=== PATIENT | female | born 1935 | race Caucasian/White ===

== ENCOUNTER 2017-07-22 14:00 | Observation (INO) | payer MEDICARE ==
[2017-07-22] MEDS ORDERED: NS 0.9% 1000 ML* 1,000 ML IV SCH (14:45)
[2017-07-22] MEDS ORDERED: Meclizine TAB* 12.5 MG PO ONE (14:57)
[2017-07-22] MEDS ORDERED: Ondansetron INJ* 2 MG/ML VIAL IV ONE (14:57)
[2017-07-22 15:11] LABS: ABS Basophils 0.1 10^3/ul (0-0.2); ABS Eosinophils 0.1 10^3/ul (0-0.6); ABS Lymphocytes 1.2 10^3/ul (1.0-4.8); ABS Neutrophils 14.4 10^3/ul (1.5-7.7); ABS Nucleated RBC 0 10^3/ul; Eosinophil % 0.6 % (0-6); Hematocrit 41 % (35-47); Hemoglobin 13.8 g/dl (12.0-16.0); Mean Corpuscular HGB Conc 33 g/dl (31-36); Mean Corpuscular Hemoglobin 30 pg (27-31); Mean Corpuscular Volume 91 fL (80-97); Mean Platelet Volume 7 um3 (7.4-10.4); Nucleated Red Blood Cells % 0.1; Platelet Count 276 10^3/ul (150-450); Red Blood Count 4.57 10^6/ul (4.0-5.4); Red Cell Distribution Width 15 % (10.5-15); White Blood Count 16.8 10^3/ul (3.5-10.8)
--- NOTE | 2017-07-22 15:24 | RAD ---
Indication: Dizziness. CT of the brain was performed without IV contrast. No prior study is available for comparison. Ventricular structures are midline. No midline shift is noted. Central and cortical atrophy is noted. Periventricular lucency consistent with chronic ischemic White matter change is noted. There is no evidence of intracranial mass or hemorrhage. Calcification is noted along the left temporal bone in the scalp. This may be sequela from prior hematoma. Mastoid air cells and paranasal sinuses are otherwise unremarkable. IMPRESSION: Chronic ischemic White matter change with central and cortical atrophy. No hemorrhage is noted.
[2017-07-22 15:27] LABS: INR 0.88 (0.77-1.02)
[2017-07-22 15:30] LABS: EGFR Non-African American 95.9 (>60)
[2017-07-22 15:46] LABS: Urine Appearance Clear; Urine Blood Negative (Negative); Urine Color Straw; Urine Ketones Negative (Negative); Urine Protein Negative (Negative); Urine Specific Gravity 1.006 (1.010-1.030); Urine Urobilinogen Negative (Negative)
--- NOTE | 2017-07-22 16:03 | RAD ---
Indication: Dizziness, elevated white blood cell count. Single frontal view of the chest performed at 1545 hours was reviewed. Comparison is made with previous exam dated May 09, 2011. No mediastinal shift is noted. Heart is at the upper limits of normal size. Guillen are clear. IMPRESSION: NO ACTIVE CARDIOPULMONARY DISEASE IS NOTED.
--- NOTE | 2017-07-22 16:38 | ED ---
Tracy Colon Thomas, scribed for Edilson English MD on 07/22/17 at 1508 . Dizziness - HPI Summary HPI Summary: The patient is an 81 year old female with a history of dementia brought in by ambulance with complaints of dizziness that began earlier today. Prior to arrival she was vomiting. She additionally complains of nausea and described her stomach as feeling off. The dizziness is aggravated by movement. The patient denies headache and chest pain. She is accompanied by three family members. - History Of Current Complaint Chief Complaint: EDDizziness Stated Complaint: DIZINESS/VOMITING Time Seen by Provider: 07/22/17 14:41 Hx Obtained From: Patient, Family/Shop Firer/Fireman Onset/Duration: Still Present Timing: Constant Severity Initially: Mild Severity Currently: Mild Character: Room Spinning, Dizzy Aggravating Factor(s): Position Change Alleviating Factor(s): Nothing Associated Signs And Symptoms: Positive: Nausea, Vomiting, Other: - Stomach "feels off" - Allergies/Home Medications Allergies/Adverse Reactions: Allergies Allergy/AdvReac Type Severity Reaction Status Date / Time No Known Allergies Allergy Verified 07/22/17 14:33 Home Medications: Home Medications Cyanocobalamin TAB* [Vitamin B12 TAB*] 500 mcg PO DAILY 07/22/17 [History Confirmed 07/22/17] PMH/Surg Hx/FS Hx/Imm Hx Endocrine/Hematology History: Denies: Hx Diabetes Cardiovascular History: Denies: Hx Hypertension Infectious Disease History: No Infectious Disease History: Denies: Traveled Outside the [place] in Last 30 Days - Family History Known Family History: Negative: Diabetes - Social History Alcohol Use: None Substance Use Type: Reports: None Smoking Status (MU): Unknown if Ever Smoked Review of Systems Negative: Chest Pain Positive: Vomiting, Nausea, Other - Stomach "feels off" Neurological: Other - Dizziness Negative: Headache All Other Systems Reviewed And Are Negative: Yes Physical Exam - Summary Physical Exam Summary: General: well-appearing, no pain distress Skin: warm, color reflects adequate perfusion, dry Head: normal Eyes: EOMI, ARTIE. There is no nystagmus. ENT: normal Neck: supple, nontender Respiratory: CTA, breath sounds present Cardiovascular: RRR Abdomen: soft, nontender Bowel: present Musculoskeletal: normal, strength/ROM intact Neurological: sensory/motor intact. She has dementia. She is dizzy and moves her head and eyes, but there is no nystagmus. No focal neurological deficit. Psychological: The patient has dementia. Triage Information Reviewed: Yes Vital Signs On Initial Exam: Initial Vitals Temp Pulse Resp BP Pulse Ox 97.9 F 65 69 172/77 97 07/22/17 14:15 07/22/17 14:15 07/22/17 14:15 07/22/17 14:15 07/22/17 14:15 Vital Signs Reviewed: Yes - Richard Coma Scale Coma Scale Total: 15 Diagnostics - Vital Signs Vital Signs Temp Pulse Resp BP Pulse Ox 07/22/17 14:17 65 16 97 07/22/17 14:16 172/77 07/22/17 14:15 97.9 F 65 69 172/77 97 - Laboratory Lab Results: Lab Results 07/22/17 07/22/17 07/22/17 Range/Units 14:55 14:55 14:55 WBC (3.5-10.8) 10^3/ul RBC (4.0-5.4) 10^6/ul Hgb (12.0-16.0) g/dl Hct (35-47) % MCV (80-97) fL MCH (27-31) pg MCHC (31-36) g/dl RDW (10.5-15) % Plt Count (150-450) 10^3/ul MPV (7.4-10.4) um3 Neut % (Auto) (38-83) % Lymph % (Auto) (25-47) % Ward % (Auto) (1-9) % Eos % (Auto) (0-6) % Baso % (Auto) (0-2) % Absolute Neuts (auto) (1.5-7.7) 10^3/ul Absolute Lymphs (auto) (1.0-4.8) 10^3/ul Absolute Monos (auto) (0-0.8) 10^3/ul Absolute Eos (auto) (0-0.6) 10^3/ul Absolute Basos (auto) (0-0.2) 10^3/ul Absolute Nucleated RBC 10^3/ul Nucleated RBC % INR (Anticoag Therapy) 0.88 (0.77-1.02) APTT 24.9 L (26.0-36.3) seconds Sodium 135 (133-145) mmol/L Potassium 3.8 (3.5-5.0) mmol/L Chloride 103 (101-111) mmol/L Carbon Dioxide 27 (22-32) mmol/L Anion Gap 5 (2-11) mmol/L BUN 9 (6-24) mg/dL Creatinine 0.60 (0.51-0.95) mg/dL Est GFR ( Amer) 123.4 (>60) Est GFR (Non-Af Amer) 95.9 (>60) BUN/Creatinine Ratio 15.0 (8-20) Glucose 107 H (70-100) mg/dL Lactic Acid (0.5-2.0) mmol/L Calcium 8.5 L (8.6-10.3) mg/dL Magnesium 1.9 (1.9-2.7) mg/dL Total Bilirubin 0.40 (0.2-1.0) mg/dL AST 15 (13-39) U/L ALT 8 (7-52) U/L Alkaline Phosphatase 86 (34-104) U/L Troponin I 0.01 (<0.04) ng/mL C-Reactive Protein 3.66 (< 5.00) mg/L B-Natriuretic Peptide 29 ( - 100) pg/mL Total Protein 6.7 (6.4-8.9) g/dL Albumin 3.6 (3.2-5.2) g/dL Globulin 3.1 (2-4) g/dL Albumin/Globulin Ratio 1.2 (1-3) TSH 5.83 H (0.34-5.60) mcIU/mL Urine Color Urine Appearance Urine pH (5-9) Ur Specific [place] (1.010-1.030) Urine Protein (Negative) Urine Ketones (Negative) Urine Blood (Negative) Urine Nitrate (Negative) Urine Bilirubin (Negative) Urine Urobilinogen (Negative) Ur Leukocyte Esterase (Negative) Urine WBC (Auto) (Absent) Urine RBC (Auto) (Absent) Ur Squamous Epith Cells (Absent) Urine Bacteria (Absent) Urine Glucose (Negative) 07/22/17 07/22/17 07/22/17 Range/Units 14:55 14:55 15:35 WBC 16.8 H (3.5-10.8) 10^3/ul RBC 4.57 (4.0-5.4) 10^6/ul Hgb 13.8 (12.0-16.0) g/dl Hct 41 (35-47) % MCV 91 (80-97) fL MCH 30 (27-31) pg MCHC 33 (31-36) g/dl RDW 15 (10.5-15) % Plt Count 276 (150-450) 10^3/ul MPV 7 L (7.4-10.4) um3 Neut % (Auto) 85.8 H (38-83) % Lymph % (Auto) 7.0 L (25-47) % Ward % (Auto) 6.1 (1-9) % Eos % (Auto) 0.6 (0-6) % Baso % (Auto) 0.5 (0-2) % Absolute Neuts (auto) 14.4 H (1.5-7.7) 10^3/ul Absolute Lymphs (auto) 1.2 (1.0-4.8) 10^3/ul Absolute Monos (auto) 1.0 H (0-0.8) 10^3/ul Absolute Eos (auto) 0.1 (0-0.6) 10^3/ul Absolute Basos (auto) 0.1 (0-0.2) 10^3/ul Absolute Nucleated RBC 0 10^3/ul Nucleated RBC % 0.1 INR (Anticoag Therapy) (0.77-1.02) APTT (26.0-36.3) seconds Sodium (133-145) mmol/L Potassium (3.5-5.0) mmol/L Chloride (101-111) mmol/L Carbon Dioxide (22-32) mmol/L Anion Gap (2-11) mmol/L BUN (6-24) mg/dL Creatinine (0.51-0.95) mg/dL Est GFR ( Amer) (>60) Est GFR (Non-Af Amer) (>60) BUN/Creatinine Ratio (8-20) Glucose (70-100) mg/dL Lactic Acid 1.3 (0.5-2.0) mmol/L Calcium (8.6-10.3) mg/dL Magnesium (1.9-2.7) mg/dL Total Bilirubin (0.2-1.0) mg/dL AST (13-39) U/L ALT (7-52) U/L Alkaline Phosphatase (34-104) U/L Troponin I (<0.04) ng/mL C-Reactive Protein (< 5.00) mg/L B-Natriuretic Peptide ( - 100) pg/mL Total Protein (6.4-8.9) g/dL Albumin (3.2-5.2) g/dL Globulin (2-4) g/dL Albumin/Globulin Ratio (1-3) TSH (0.34-5.60) mcIU/mL Urine Color Straw Urine Appearance Clear Urine pH 8.0 (5-9) Ur Specific [place] 1.006 L (1.010-1.030) Urine Protein Negative (Negative) Urine Ketones Negative (Negative) Urine Blood Negative (Negative) Urine Nitrate Negative (Negative) Urine Bilirubin Negative (Negative) Urine Urobilinogen Negative (Negative) Ur Leukocyte Esterase 2+ H (Negative) Urine WBC (Auto) 1+(6-10/hpf) H (Absent) Urine RBC (Auto) Trace(0-2/hpf) (Absent) Ur Squamous Epith Cells Present H (Absent) Urine Bacteria Absent (Absent) Urine Glucose Negative (Negative) Result Diagrams: 07/22/17 14:55 07/22/17 14:55 Lab Statement: Any lab studies that have been ordered have been reviewed, and results considered in the medical decision making process. - CT CT Brain CT Interpretation: No Acute Changes - Chronic ischemic White matter change with central and cortical atrophy. No hemorrhage is noted. Dr. English has reviewed this report. CT Interpretation Completed By: Radiologist Dizzy Course/Dx - Course Course Of Treatment: Medications reviewed. BP noted and advised follow up with PMD. PATIENT UNABLE TO AMBULATE SAFELY. ADMIT HOSPITALIST - Diagnoses Provider Diagnoses: Blood pressure elevated without history of HTN, Dizziness Discharge - Discharge Plan Condition: Stable Disposition: ADMITTED TO [facility] Referrals: Haroon DEE,Geovanna Madsen [Primary Care Provider] - The documentation as recorded by the Tracy demarco Thomas accurately reflects the service I personally performed and the decisions made by , Edilson English MD.
[2017-07-22] MEDS ORDERED: cefTRIAXone(*) 1 GM in NS 0.9% 50 ML* 50 ML IVPB SCH (17:00)
[2017-07-22] MEDS ORDERED: Calcium Carbonate CHEW TAB* 500 MG (TUMS) PO ONE (17:29)
[2017-07-22] MEDS ORDERED: NS 0.9% 50 ML* 50 ML ONE (18:30)
[2017-07-22] MEDS: Omeprazole CAP* 20 MG PO SCH (20:04)
[2017-07-22] MEDS: Calcium Carbonate CHEW TAB* 500 MG (TUMS) PO SCH (20:04)
--- NOTE | 2017-07-22 20:50 | HP ---
HISTORY AND PHYSICAL: DATE OF ADMISSION: 07/22/17. ADMITTING PROVIDER: Josiah Sanches MD. PRIMARY CARE DOCTOR: Geovanna Patiño MD ([place]). CHIEF COMPLAINT: Nausea, vomiting, vertigo, inability to ambulate. HISTORY OF PRESENT ILLNESS: Taylor Ragsdale is an 81-year-old female with a past medical history of dementia, presenting with one day of nausea, vomiting, followed by dizziness. The patient vomited twice at home then once in the emergency room, brown bilious, no reported coffee-ground emesis or blood. The patient's main complaint now is dizziness especially with head movements and lying down flat. She has not had these sensations before. Daughter had noticed that her eyes were jittery during these episodes. The patient specifically denied any dysuria, chest pain, chest tightness, diarrhea, constipation, abdominal pain. No slurred speech or focal weakness. There is element of heartburn, which she does get chronically and takes Tums for it p.r.n. The patient in the emergency room of [facility] [place] had a CT of the head, which showed some chronic ischemic white matter changes, a chest chest x- ray which showed no acute process, EKG, which showed normal sinus rhythm with a premature atrial contraction. She is being admitted given inability to ambulate in the setting of acute onset of nausea, vomiting, vertigo and a UA that may be consistent with urinary tract infection with 2+ leukocyte esterase and 1+ white count. She does have a leukocytosis of 16.8. She is being admitted to observation status. PAST MEDICAL HISTORY: 1. Dementia. 2. Episode of pneumonia in 2010. PAST SURGICAL HISTORY: Denies any. MEDICATIONS: Include, B12 500 mcg p.o. daily. ALLERGIES: No known drug allergies. FAMILY HISTORY: Mother of COPD. Father of myocardial infarction. SOCIAL HISTORY: The patient is a former smoker, quit around age 45. She smoked for approximately 30 years, approximately 1 pack per day. Never a drinker. No other drug use. She was a housewife. Her medical surrogate is her daughter, Haroon Ragsdale. She lives in [facility]. Her is currently at [facility]. REVIEW OF SYSTEMS: Complete 14-point review of systems is negative except as per HPI. PHYSICAL EXAMINATION GENERAL APPEARANCE: No acute distress, sitting in bed, somewhat anxious appearing with movements. VITAL SIGNS: Temperature 97.9, heart rate 68, respiratory rate 16, sating 97% on room air, blood pressure 172/77. HEENT: Normocephalic, atraumatic. Pupils are equally round and reactive to light. Extraocular motions are intact. No scleral icterus. NECK: Supple. No cervical lymphadenopathy. PULMONARY: Coarse rales at bilateral bases. No wheezing or rhonchi. CARDIOVASCULAR: Regular rate and rhythm. No murmurs, rubs, or gallops. ABDOMEN: Soft, nontender, and nondistended. No peritoneal signs. No guarding. No rebound. No Day's sign. EXTREMITIES: Warm and well perfused. No peripheral edema. NEUROLOGIC EXAM: Cranial nerves II through XII intact. Strength 5/5 in upper and lower extremities, though somewhat pain limited in her left thigh with hip flexion. The patient does have some horizontal nystagmus on occasion with changes to head movement, though is not tolerant of full Jocelyn-Hallpike testing given acute vertiginous sensations. Btzufe-ov-neqt intact. Rapid hand motions intact. Heel- to-simms slow, but intact. SKIN: No lesions, no rashes. DIAGNOSTIC STUDIES/LAB DATA: Laboratory evaluation, white count 16.8, hemoglobin 13.8, hematocrit 41, platelets 276, INR 0.88. Sodium 135, potassium 3.8, chloride 103, carbon dioxide 27, BUN 9, creatinine 0.60, glucose 107, lactic acid 1.3, magnesium 1.9. AST 15, ALT 8. Troponin 0.01. CRP 3.66. BNP 29. TSH 5.83. Urinalysis 2+ leukocyte esterase, 1+ white count, no nitrites, absent bacteria. Imaging, CT of the head, noncontrast demonstrated chronic ischemic white matter changes with central cortical atrophy. No hemorrhages noted. Some calcifications noted along the left temporal bone in the scalp, which may be the sequela of prior hematoma. Chest x-ray demonstrated no active cardiopulmonary disease. EKG demonstrated normal sinus rhythm with premature atrial contraction, normal axis, normal interval, QTC 482. No ST changes or no T-wave inversions. ASSESSMENT AND PLAN: 1. The patient is an 81-year-old female, relatively healthy with some moderate dementia presenting with acute onset of nausea, vomiting, vertigo and inability to safely ambulate. She is being admitted to observation status. She does have equivical evidence of horizontal nystagmus with some head motions. We will get physical therapy to see her in the morning, may benefit from Geneva maneuver and we will try to repeat [place]-Hallpike testing in the morning. We will continue IV fluids given her nausea, vomiting. She has a intermediately positive urinalysis. We will follow up the urine culture and start empiric ceftriaxone for a potential urinary tract infection until urine culture results especially given her leukocytosis and nausea, vomiting and vertigo. We will continue the meclizine for now 12.5 mg q.8 hours p.r.n. She does not have any other focal neurological deficits. We will defer getting an MRI now. No evidence of transient ischemic attack or previous stroke or history of atrial fibrillation. 2. Blood pressure is relatively elevated in the setting of nausea and vomiting. We will give hydralazine p.r.n. for her blood pressure greater than 180 and monitor to see if she needs to be started on a new antihypertensive. 3. For her history of gastroesophageal reflux disease. We will continue Tums and also start Protonix daily. We will continue Zofran for antinausea therapy. 4. She is a full code, medical surrogate is Haroonkim Ragsdale. [id number]/CPS #: [id number] [facility] HEALTH SYSTEMJosiah
[2017-07-22] MEDS: Meclizine TAB* 12.5 MG PO SCH (21:48)
[2017-07-22] MEDS ORDERED: Ondansetron INJ* 2 MG/ML VIAL IV PRN (22:00)
[2017-07-23] MEDS: Meclizine TAB* 12.5 MG PO SCH ×2 (05:44→13:59)
[2017-07-23 07:08] LABS: ABS Basophils 0.1 10^3/ul (0-0.2); ABS Eosinophils 0.1 10^3/ul (0-0.6); ABS Lymphocytes 1.7 10^3/ul (1.0-4.8); ABS Monocytes 0.8 10^3/ul (0-0.8); ABS Neutrophils 6.5 10^3/ul (1.5-7.7); ABS Nucleated RBC 0 10^3/ul; Eosinophil % 1.4 % (0-6); Hematocrit 42 % (35-47); Hemoglobin 14.2 g/dl (12.0-16.0); Lymphocyte % 18.1 % (25-47); Mean Corpuscular HGB Conc 34 g/dl (31-36); Mean Corpuscular Hemoglobin 31 pg (27-31); Mean Corpuscular Volume 90 fL (80-97); Mean Platelet Volume 7 um3 (7.4-10.4); Nucleated Red Blood Cells % 0; Platelet Count 298 10^3/ul (150-450); Red Blood Count 4.61 10^6/ul (4.0-5.4); Red Cell Distribution Width 15 % (10.5-15); White Blood Count 9.2 10^3/ul (3.5-10.8)
[2017-07-23 07:23] LABS: EGFR Non-African American 69.8 (>60)
[2017-07-23] MEDS ORDERED: Cyanocobalamin TAB* 500 MCG PO SCH (09:00)
[2017-07-23] MEDS: Calcium Carbonate CHEW TAB* 500 MG (TUMS) PO SCH (09:53)
[2017-07-23] MEDS: Omeprazole CAP* 20 MG PO SCH (09:53)
[2017-07-23 11:19] VITALS: BP 149/61
[2017-07-23] MEDS ORDERED: Acetaminophen TAB* 325 MG PO PRN (11:21)
--- NOTE | 2017-07-24 02:03 | DS ---
DISCHARGE SUMMARY: DATE OF ADMISSION: 07/22/17 DATE OF DISCHARGE: 07/23/17 ADMITTING PROVIDER: Josiah Sanches MD ATTENDING PHYSICIAN: Josiah Sanches MD PRIMARY CARE DOCTOR: Geovanna Patiño MD ([place], [place]). CHIEF COMPLAINT: Nausea, vomiting, vertigo, inability to ambulate. PRINCIPAL DIAGNOSES: Escherichia coli urinary tract infection; possible gastroenteritis. HISTORY OF PRESENT ILLNESS AND HOSPITAL COURSE: Taylor Ragsdale is an 81-year- old female with PMH of dementia, presented with 1 day of nausea, vomiting followed by dizziness. The patient had bilious vomit x2 at home and then again in the emergency room was treated with Zofran and had relief of nausea throughout the rest of the admission. She had a UA that was concerning for potential urinary tract infection with 2+ leukocyte esterase, 1+ white blood cell count, and the urine culture ultimately revealed 75,000 to 100,000 E. coli. She had been empirically started on ceftriaxone upon admission. She worked with physical therapy, was able to ambulate with some contact guard assistance. She had a CT head, which did not demonstrate any signs of acute stroke and no other cerebellar signs or focal neurological deficits were discovered on serial neurologic exams. She was not orthostatic. She had some reported jittery eye movements prior to admission, but was not observed on repeat Jocelyn-Hallpike testing, though somewhat limited given the patient's anxiety and dizziness during the testing. Head thrust test was negative. The patient will be discharged with close followup to primary care physician, Dr. Geovanna Patiño, within 3 to 5 days after discharge and oral course of cefdinir 300 mg p.o. b.i.d. for an additional 6 days. DISCHARGE MEDICATIONS: Include: 1. Cefdinir 300 mg p.o. b.i.d. for 12 tabs. 2. Tylenol p.r.n. for pain or headache. 3. Calcium carbonate 500 mg b.i.d. p.r.n. for GERD. DISCHARGE DIET: No restrictions. RESTRICTIONS: None. FOLLOWUP: Please follow up with Dr. Geovanna Patiño within 3 to 5 days. Please follow up on urine culture and sensitivity testing to make sure sensitive to cephalosporins. The patient also was initially hypertensive on admission in the 170s/70s, but that improved to between 130s to mid 140s and blood pressure should be checked as an outpatient. TIME SPENT: Time spent on discharge was 35 minutes. [id number]/CPS #: [id number] [facility]
== END 2017-07-23 15:00 | disposition home or self-care (01) ==
LOC: ED 14:00 → MED 17:05
PROVIDERS: ADMIT Internal Medicine; ATTEND Internal Medicine
DX: R11.2 Nausea with vomiting, unspecified (principal); R42 Dizziness and giddiness; R26.2 Difficulty in walking, not elsewhere classified; N39.0 Urinary tract infection, site not specified; B96.20 Unspecified Escherichia coli [E. coli] as the cause of diseases classified elsewhere; K21.9 Gastro-esophageal reflux disease without esophagitis; I49.1 Atrial premature depolarization; R07.9 Chest pain, unspecified; Z87.891 Personal history of nicotine dependence; F03.90 Unspecified dementia, unspecified severity, without behavioral disturbance, psychotic disturbance, mood disturbance, and anxiety
CPT/HCPCS: 36415; 70450; 71045; 80048; 80053; 81003; 81015; 82375; 82803; 83605; 83735; 83880; 84443; 84484; 85025; 85610; 85730; 86140; 87077; 87086; 87186; 87502; 93005; 96365; 96375; 99284; A9270-GY; G0378; G8978-GP-CI; G8979-GP-CH; J0696; J2405

== ENCOUNTER 2019-04-09 11:08 | Emergency (ER) | payer MEDICARE ==
[2019-04-09 12:54] LABS: ABS Basophils 0.1 10^3/ul (0-0.2); ABS Eosinophils 0.1 10^3/ul (0-0.6); ABS Lymphocytes 0.7 10^3/ul (1.0-4.8); ABS Monocytes 0.9 10^3/ul (0-0.8); ABS Neutrophils 6.8 10^3/ul (1.5-7.7); Eosinophil % 1.1 %; Hematocrit 46 % (35-47); Hemoglobin 15.8 g/dL (12.0-16.0); Lymphocyte % 8.2 %; Mean Corpuscular HGB Conc 34 g/dL (31-36); Mean Corpuscular Hemoglobin 33 pg (27-31); Mean Corpuscular Volume 95 fL (80-97); Mean Platelet Volume 7.7 fL (7.4-10.4); Platelet Count 259 10^3/uL (150-450); Red Blood Count 4.84 10^6 /uL (3.70-4.87); Red Cell Distribution Width 14 % (10-15); White Blood Count 8.5 10^3/uL (3.5-10.8)
[2019-04-09 13:13] LABS: Albumin 4.3 g/dL (3.2-5.2); Albumin/Globulin Ratio 1.1 (1-3); Calcium 9.7 mg/dL (8.6-10.3); EGFR African American 82.9 (>60); EGFR Non-African American 68.5 (>60); Globulin 3.9 g/dL (2-4); Magnesium 2.3 mg/dL (1.9-2.7); Total Bilirubin 0.5 mg/dL (0.2-1.0); Total Protein 8.2 g/dL (6.4-8.9)
[2019-04-09 13:15] LABS: Troponin I 0.01 ng/mL (<0.04)
[2019-04-09 13:37] LABS: TSH (Thyroid Stimulating Horm) 2.99 mcIU/mL (0.34-5.60)
[2019-04-09 14:16] LABS: Urine Appearance Cloudy; Urine Bacteria Absent (Absent); Urine Bilirubin Negative (Negative); Urine Blood 1+ (Negative); Urine Color Yellow; Urine Glucose Negative (Negative); Urine Ketones Negative (Negative); Urine Nitrite Negative (Negative); Urine Protein Negative (Negative); Urine Red Blood Cell Trace(0-2/hpf) (Absent); Urine Specific Gravity 1.005 (1.010-1.030); Urine Squamous Epithelial Cell Present (Absent); Urine Urobilinogen Negative (Negative); Urine White Blood Cell 2+(11-20/hpf) (Absent)
[2019-04-09 15:33] VITALS: BP 189/78
--- NOTE | 2019-04-09 15:48 | ED ---
Dizziness - HPI Summary HPI Summary: This patient is an 83-year-old female with a history of dementia and vertigo presenting to the ED with family. Patient had one episode of dizziness this morning with ringing in the ears. Symptoms resolved approximately 10 minutes later. She denies any CP or SOB. She denies any abdominal pain, nausea, vomiting, diarrhea, constipation. Patient takes no medications and denies history of any health problems. Family at bedside state patient unwilling to see physicians and has dementia so typically does not see physicians. Last check up over 1 year ago. - History Of Current Complaint Chief Complaint: EDDizziness Stated Complaint: DIZZY, WEEK Time Seen by Provider: 04/09/19 13:51 Hx Obtained From: Patient Timing: Constant Severity Initially: Moderate Severity Currently: None Character: Dizzy Aggravating Factor(s): Nothing Alleviating Factor(s): Nothing Associated Signs And Symptoms: Positive: Nausea - Risk Factors Cardiac Risk Factors: Negative CVA Risk Factor: Negative - Allergies/Home Medications Allergies/Adverse Reactions: Allergies Allergy/AdvReac Type Severity Reaction Status Date / Time No Known Allergies Allergy Verified 04/09/19 11:23 PMH/Surg Hx/FS Hx/Imm Hx Previously Healthy: Yes Endocrine/Hematology History: Denies: Hx Diabetes Cardiovascular History: Denies: Hx Hypertension GI History: Reports: Other GI Disorders - Chronic Heartburn takes TUMS every day Sensory History: Denies: Hx Contacts or Glasses, Hx Hearing Aid Opthamlomology History: Denies: Hx Contacts or Glasses Neurological History: Reports: Hx Dementia - Immunization History Hx Pertussis Vaccination: No Immunizations Up to Date: Yes Infectious Disease History: No Infectious Disease History: Denies: Traveled Outside the [place] in Last 30 Days - Family History Known Family History: Negative: Diabetes - Social History Occupation: Unemployed Lives: With Family Alcohol Use: None Hx Substance Use: No Substance Use Type: Reports: None Hx Tobacco Use: No Smoking Status (MU): Former Smoker Review of Systems Negative: Fever, Chills, Fatigue, Skin Diaphoresis Negative: Dental Pain Negative: Palpitations, Chest Pain Negative: Shortness Of Breath, Cough Positive: Nausea Genitourinary: Negative Positive: no symptoms reported, see HPI Negative: Arthralgia, Myalgia Neurological: Other - dizziness - since resolved All Other Systems Reviewed And Are Negative: Yes Physical Exam Triage Information Reviewed: Yes Vital Signs On Initial Exam: Initial Vitals Temp Pulse Resp BP Pulse Ox 98.3 F 66 16 204/88 98 04/09/19 11:19 04/09/19 11:19 04/09/19 11:19 04/09/19 11:19 04/09/19 11:19 Vital Signs Reviewed: Yes Appearance: Positive: Well-Appearing, Well-Nourished Skin: Positive: Warm, Skin Color Reflects Adequate Perfusion Head/Face: Positive: Normal Head/Face Inspection Eyes: Positive: Conjunctiva Clear Neck: Positive: Supple, Nontender, No Lymphadenopathy Respiratory/Lung Sounds: Positive: Clear to Auscultation, Breath Sounds Present Cardiovascular: Positive: RRR, Pulses are Symmetrical in both Upper and Lower Extremities Musculoskeletal: Positive: Strength/ROM Intact Neurological: Positive: Other - pt confused - baseline AVPU Assessment: Alert Procedures - Sedation Patient Received Moderate/Deep Sedation with Procedure: No Diagnostics - Vital Signs Vital Signs Temp Pulse Resp BP Pulse Ox 04/09/19 15:02 67 22 189/78 97 04/09/19 15:00 76 26 94 04/09/19 14:05 21 04/09/19 14:04 196/126 04/09/19 11:19 98.3 F 66 16 204/88 98 - Laboratory Lab Results: Lab Results 04/09/19 04/09/19 04/09/19 Range/Units 12:47 12:47 12:47 WBC 8.5 (3.5-10.8) 10^3/uL RBC 4.84 (3.70-4.87) 10^6 /uL Hgb 15.8 (12.0-16.0) g/dL Hct 46 (35-47) % MCV 95 (80-97) fL MCH 33 H (27-31) pg MCHC 34 (31-36) g/dL RDW 14 (10-15) % Plt Count 259 (150-450) 10^3/uL MPV 7.7 (7.4-10.4) fL Neut % (Auto) 80.1 % Lymph % (Auto) 8.2 % Catron % (Auto) 10.0 % Eos % (Auto) 1.1 % Baso % (Auto) 0.6 % Absolute Neuts (auto) 6.8 (1.5-7.7) 10^3/ul Absolute Lymphs (auto) 0.7 L (1.0-4.8) 10^3/ul Absolute Monos (auto) 0.9 H (0-0.8) 10^3/ul Absolute Eos (auto) 0.1 (0-0.6) 10^3/ul Absolute Basos (auto) 0.1 (0-0.2) 10^3/ul Absolute Nucleated RBC 0.0 10^3/ul Nucleated RBC % 0.0 Sodium 136 (135-145) mmol/L Potassium 4.0 (3.5-5.0) mmol/L Chloride 100 L (101-111) mmol/L Carbon Dioxide 29 (22-32) mmol/L Anion Gap 7 (2-11) mmol/L BUN 8 (6-24) mg/dL Creatinine 0.80 (0.51-0.95) mg/dL Est GFR ( Amer) 82.9 (>60) Est GFR (Non-Af Amer) 68.5 (>60) BUN/Creatinine Ratio 10.0 (8-20) Glucose 106 H (70-100) mg/dL Lactic Acid 1.2 (0.5-2.0) mmol/L Calcium 9.7 (8.6-10.3) mg/dL Magnesium 2.3 (1.9-2.7) mg/dL Total Bilirubin 0.50 (0.2-1.0) mg/dL AST 20 (13-39) U/L ALT 15 (7-52) U/L Alkaline Phosphatase 94 (34-104) U/L Troponin I 0.01 (<0.04) ng/mL Total Protein 8.2 (6.4-8.9) g/dL Albumin 4.3 (3.2-5.2) g/dL Globulin 3.9 (2-4) g/dL Albumin/Globulin Ratio 1.1 (1-3) TSH 2.99 (0.34-5.60) mcIU/mL Urine Color Urine Appearance Urine pH (5-9) Ur Specific Tippo (1.010-1.030) Urine Protein (Negative) Urine Ketones (Negative) Urine Blood (Negative) Urine Nitrate (Negative) Urine Bilirubin (Negative) Urine Urobilinogen (Negative) Ur Leukocyte Esterase (Negative) Urine WBC (Auto) (Absent) Urine RBC (Auto) (Absent) Ur Squamous Epith Cells (Absent) Amorphous Crystals (Absent) Urine Bacteria (Absent) Urine Glucose (Negative) 04/09/19 Range/Units 14:00 WBC (3.5-10.8) 10^3/uL RBC (3.70-4.87) 10^6 /uL Hgb (12.0-16.0) g/dL Hct (35-47) % MCV (80-97) fL MCH (27-31) pg MCHC (31-36) g/dL RDW (10-15) % Plt Count (150-450) 10^3/uL MPV (7.4-10.4) fL Neut % (Auto) % Lymph % (Auto) % Catron % (Auto) % Eos % (Auto) % Baso % (Auto) % Absolute Neuts (auto) (1.5-7.7) 10^3/ul Absolute Lymphs (auto) (1.0-4.8) 10^3/ul Absolute Monos (auto) (0-0.8) 10^3/ul Absolute Eos (auto) (0-0.6) 10^3/ul Absolute Basos (auto) (0-0.2) 10^3/ul Absolute Nucleated RBC 10^3/ul Nucleated RBC % Sodium (135-145) mmol/L Potassium (3.5-5.0) mmol/L Chloride (101-111) mmol/L Carbon Dioxide (22-32) mmol/L Anion Gap (2-11) mmol/L BUN (6-24) mg/dL Creatinine (0.51-0.95) mg/dL Est GFR ( Amer) (>60) Est GFR (Non-Af Amer) (>60) BUN/Creatinine Ratio (8-20) Glucose (70-100) mg/dL Lactic Acid (0.5-2.0) mmol/L Calcium (8.6-10.3) mg/dL Magnesium (1.9-2.7) mg/dL Total Bilirubin (0.2-1.0) mg/dL AST (13-39) U/L ALT (7-52) U/L Alkaline Phosphatase (34-104) U/L Troponin I (<0.04) ng/mL Total Protein (6.4-8.9) g/dL Albumin (3.2-5.2) g/dL Globulin (2-4) g/dL Albumin/Globulin Ratio (1-3) TSH (0.34-5.60) mcIU/mL Urine Color Yellow Urine Appearance Cloudy Urine pH 7.0 (5-9) Ur Specific T[place] 1.005 L (1.010-1.030) Urine Protein Negative (Negative) Urine Ketones Negative (Negative) Urine Blood 1+ A (Negative) Urine Nitrate Negative (Negative) Urine Bilirubin Negative (Negative) Urine Urobilinogen Negative (Negative) Ur Leukocyte Esterase 2+ A (Negative) Urine WBC (Auto) 2+(11-20/hpf) A (Absent) Urine RBC (Auto) Trace(0-2/hpf) (Absent) Ur Squamous Epith Cells Present A (Absent) Amorphous Crystals Present A (Absent) Urine Bacteria Absent (Absent) Urine Glucose Negative (Negative) Result Diagrams: 04/09/19 12:47 04/09/19 12:47 Lab Statement: Any lab studies that have been ordered have been reviewed, and results considered in the medical decision making process. Dizzy Course/Dx - Course Course Of Treatment: During the course of treatment, the patient is evaluated for 1 episode of dizziness this morning. Patient is otherwise healthy and takes no medications. She does have a history of dementia. She states she is asymptomatic and denies any chest pain, shortness of breath, dizziness, headache , visual changes. Per family, patient had an episode of dizziness this morning which since resolved prior to arrival. She denies any nausea and family members deny any vomiting. Labs obtained as well as UA. UA shows a positive UTI. We'll treat with Cipro [address] brain obtained which shows ischemic vessel changes, however no intracranial pathology. Labs are otherwise WNL. Patient appears well nondiaphoretic and nontoxic appearing. She does have an elevated BP, however does not take medications. Last BP 189/78. I've encouraged her to follow up very closely with her PCP for monitoring of her blood pressure. Family states they will follow back up with her primary. No other acute findings today. Patient ambulating well and continues to deny any dizziness. - Diagnoses Differential Diagnosis/HQI/PQRI: Benign Paroxysmal Positional Vertigo, CVA, Metabolic Abnormality, Transient Ischemic Attack Provider Diagnoses: Dizziness, HTN (hypertension) Discharge ED - Sign-Out/Discharge Documenting (check all that apply): Patient Departure - Discharge Plan Condition: Stable Disposition: HOME Prescriptions: Ciprofloxacin TAB* [Cipro 500 MG TAB*] 500 mg PO BID #10 tab Patient Education Materials: Dizziness (ED) Referrals: Haroon DEE,Geovanna Madsen [Primary Care Provider] - Additional Instructions: Please follow up with Dr. Patiño Ciprofloxacin twice daily x 5 days - Billing Disposition and Condition Condition: STABLE Disposition: Home
== END 2019-04-09 15:30 | disposition home or self-care (01) ==
LOC: ED 11:08
DX: R42 Dizziness and giddiness (principal); I10 Essential (primary) hypertension; R11.0 Nausea; Z87.891 Personal history of nicotine dependence
CPT/HCPCS: 36415; 70450; 80053; 81003; 81015; 83605; 83735; 84443; 84484; 85025; 87086; 93005; 99283